=== PATIENT | female | born 1945 | race Caucasian/White ===

== ENCOUNTER 2016-12-16 09:42 | Day surgery (SDC) | payer MEDICARE, OTHER ==
--- NOTE | 2016-12-15 11:11 | HP ---
Chaya Sheikh DATE OF SURGERY: 12/16/2016 PREOPERATIVE DIAGNOSIS: Postmenopausal bleeding. PROCEDURE PLANNED: Hysteroscopy, dilation and curettage. HISTORY OF PRESENT ILLNESS: The patient is a 71-year-old 7, para 7 woman with an last menstrual period of 1983. She states that since 2012 she has been having vaginal bleeding. Last year she had an ultrasound which showed a 2.3 cm endometrial thickness. An office biopsy was done by her primary care doctor which was negative. She continues to have the bleeding sometimes heavy. She has been on tamoxifen in the past, but has stopped that. She has a history of colon cancer, breast cancer, and now lung cancer with metastasis. PAST MEDICAL HISTORY: Medical as mentioned she has a history of colon cancer, lung cancer, and breast cancer. PAST SURGICAL HISTORY: She has had a mastectomy and she has recently had a hip replacement. ALLERGIES: None. CURRENT MEDICATIONS: 1. Dilaudid 2 mg every 4 hours as needed. 2. Winslow 10/325 mg every 4 hours as needed. 3. Pradaxa 75 mg twice a day. 4. Soma 350 mg three times a day. 5. Tramadol 50 mg every 6 hours. SOCIAL HISTORY: Patient has a caretaker. She does not smoke. Does not use alcohol. REVIEW OF SYSTEMS: Patient denies fever, chills, nausea, vomiting. PHYSICAL EXAMINATION: GENERAL: She is a frail appearing 71-year-old woman. VITAL SIGNS: Stable. She is afebrile. HEART: Normal S1 and S2. LUNGS: Clear. PELVIC: Deferred until getting in the operating room because the patient's mobility is very limited. IMPRESSION: A patient with postmenopausal bleeding. PLAN: Do a hysteroscopy dilation and curettage. JOB: [id number]
[~2016-12-16 09:42] MED LIST: IV START KIT ONE; LACTATED RINGERS 1,000 ML ONE
[2016-12-16] MEDS ORDERED: PROPOFOL 20 ML IV ONE (10:48)
[2016-12-16] MEDS ORDERED: MIDAZOLAM HCL 1 MG/ML 2ML VIAL ONE (10:48)
[2016-12-16] MEDS ORDERED: FENTANYL 100 MCG/2 ML VIAL ONE (10:48)
[2016-12-16] MEDS ORDERED: ESMOLOL HCL 10 MG/ML 10ML VIAL IV ONE (11:41)
[2016-12-16] MEDS ORDERED: METOPROLOL TARTRATE 1 MG/ML 5ML VIAL ONE (11:47)
[2016-12-16] MEDS ORDERED: LABETALOL HCL 5 MG/ML 20ML VIAL IV PRN (12:04)
[2016-12-16] MEDS ORDERED: NALOXONE HCL 0.4 MG/ML VIAL IV PRN (12:04)
[2016-12-16] MEDS ORDERED: HYDRALAZINE HCL 20 MG/1 ML VIAL IV PRN (12:04)
[2016-12-16] MEDS ORDERED: LACTATED RINGERS 1,000 ML IV SCH (12:15)
[2016-12-16] MEDS: FENTANYL 100 MCG/2 ML VIAL IV PRN ×2 (12:25→12:31)
--- NOTE | 2016-12-16 12:34 | OP ---
Chaya Sheikh DATE OF SURGERY: 12/16/2016 PREOPERATIVE DIAGNOSIS: Postmenopausal bleeding. POSTOPERATIVE DIAGNOSIS: Postmenopausal bleeding. OPERATION PERFORMED: Hysteroscopy dilation and curettage. PROCEDURE: The patient was taken to the operating room where anesthesia was administered. She was placed in the dorsolithotomy position and prepped and draped in the usual sterile fashion. Bimanual exam was done which showed a normal external genitalia, normal vagina, cervix was small, uterus was small mid position. No adnexal masses. No pelvic masses. The speculum was inserted and the cervix was grasped with a tenaculum. The uterus sounded to 8 cm. Cervix was progressively evaluated to a size 8 Max dilator. The hysteroscope was inserted which showed very atrophic endometrium. No masses. No polyps. Hysteroscope was removed. Sharp curette was used to curettage the uterine cavity producing a very small amount of tissue. Hemostasis was good. All instruments were removed. The patient tolerated the procedure well and was taken to the recovery room in stable condition. All sponge, instrument, and needle counts were correct. Estimated blood loss minimal. JOB: [id number]
[2016-12-16] MEDS ORDERED: HYDROCODONE/ACETAMINOPHEN 5/325MG TABLET PO PRN (12:40)
[2016-12-16] MEDS ORDERED: MORPHINE SULFATE 2 MG/ML SYRINGE IV PRN (12:40)
[2016-12-16] MEDS ORDERED: ONDANSETRON 4 MG/2ML 2 ML VIAL IV PRN (12:40)
[2016-12-16] MEDS ORDERED: HYDROCODONE/ACETAMINOPHEN 5/325MG TABLET ONE (13:23)
--- NOTE | 2016-12-18 13:21 | SURGPATH ---
[facility] [address] [place] [id number] Patient Name: RONY ALANIZ MR#: [id number] : 1945 Gender: F Specimen #: [id number] Collected: 12/16/2016 Received: 12/17/2016 Reported: 12/18/2016 Submitting Phys: JANINE NIÑO Copy To Phys: TARIQ COTTON [facility] Clinical History / Pre-Operative Diagnosis: POSTMENOPAUSAL BLEEDING Specimen Source / Surgical Procedure Performed: ENDOMETRIAL CURETTINGS Interpretation: ENDOMETRIAL CURETTINGS: - SCANT FRAGMENTS OF ATROPHIC ENDOMETRIAL TISSUE. - ADDITIONAL FRAGMENTS OF BENIGN SQUAMOUS MUCOSA. Electronically Signed Out Jennifer Chen M.D. Gross Description: The specimen is received in a formalin filled container labeled with the patient's name and "endometrial curettings". An aggregate of bauer tissue admixed with hemorrhagic material is 0.7 x 0.5 x 0.3 cm. Totally embedded in one cassette. Louie Ravi PCecilioACecilio Microscopic Description: Sections of the endometrial curettings show scant fragments of atrophic endometrial tissue admixed with blood and mucus. Fragments of benign squamous mucosa are also present. There is no diagnostic evidence of endometrial hyperplasia or malignancy in the submitted biopsy material. 1: [id number] N95.0
== END 2016-12-16 13:42 | disposition home or self-care (01) ==
LOC: SDC 09:42
PROVIDERS: ATTEND Obstetrics & Gynecology
PROC: 0UDB8ZX Extraction of Endometrium, Via Natural or Artificial Opening Endoscopic, Diagnostic (ICD-10-PCS; principal; 2016-12-16)
DX: N95.0 Postmenopausal bleeding (principal); C78.00 Secondary malignant neoplasm of unspecified lung; Z85.038 Personal history of other malignant neoplasm of large intestine; Z85.3 Personal history of malignant neoplasm of breast
CPT/HCPCS: 58558; J3010 ×2; J2250; J7120; A9270